=== PATIENT | female | born 1995 | race Caucasian/White ===

== ENCOUNTER 2021-02-13 01:25 | Inpatient (IN) | payer OTHER, SELFPAY ==
[~2021-02-13] VITALS: Ht 162.6 cm; Wt 70.3 kg
[2021-02-13] MEDS ORDERED: OXYTOCIN/0.9 % SODIUM CHLORIDE 1,000 ML IV SCH ×2 (02:15→07:15)
[2021-02-13] MEDS ORDERED: TERBUTALINE SULFATE 1 MG/ML VIAL SUBCUT ONE (02:15)
[2021-02-13] MEDS ORDERED: LR 1,000 ML IV ONE (02:15)
[2021-02-13] MEDS ORDERED: LR 1,000 ML IV SCH (02:15)
[2021-02-13 02:47] LABS: BASOPHILS # (AUTO) 0.1 K/uL (0.0-0.2); BASOPHILS % (AUTO) 0.4 % (0.0-2.0); EOSINOPHILS % (AUTO) 0.3 % (0.0-4.0); HEMOGLOBIN 13.2 g/dL (12.0-16.0); LYMPHOCYTES % (AUTO) 14.3 % (20.5-51.5); MEAN CORPUSCULAR HEMOGLOBIN 30 pg (27-31); MEAN CORPUSCULAR HGB CONC 35 % (32-36); MEAN CORPUSCULAR VOLUME 86 fL (79.0-98.0); MONOCYTES # (AUTO) 0.7 K/uL (0.0-1.0); MONOCYTES % (AUTO) 5.2 % (1.7-9.3); NEUTROPHILS # (AUTO) 11.1 K/uL (1.8-7.7); NEUTROPHILS % (AUTO) 79.8 % (40.0-70.0); PLATELET COUNT (AUTO) 232 K/uL (130-430); RED CELL DISTRIBUTION WIDTH 13.3 % (9.0-15.0); WHITE BLOOD COUNT (AUTO) 13.9 K/uL (4.8-10.8)
[2021-02-13] MEDS: NALBUPHINE HCL 10 MG/ML AMP IVP PRN ×2 (03:15→05:25)
[2021-02-13] MEDS ORDERED: LANOLIN 7 GM OINT. TP PRN (07:15)
[2021-02-13] MEDS ORDERED: METHYLERGONOVINE MALEATE 0.2 MG TABLET PO PRN (07:15)
[2021-02-13] MEDS ORDERED: ANUSOL 1 EA SUPP.RECT (PREPARATION H) RC PRN (07:15)
[2021-02-13] MEDS ORDERED: OXYTOCIN/0.9 % SODIUM CHLORIDE 1,000 ML IV ONE (07:15)
[2021-02-13] MEDS ORDERED: WITCH HAZEL LEAF 1 MED.PAD MED.PAD TP PRN (07:15)
[2021-02-13] MEDS ORDERED: HYDROCORTISONE 0.5% CREAM 28.4 GM CREAM.GM. TP PRN (07:15)
[2021-02-13] MEDS ORDERED: DERMOPLAST SPRAY TP PRN (07:15)
[2021-02-13] MEDS ORDERED: OXYCODONE/ACETAMINOPHEN 5-325 TABLET PO PRN ×2 (07:15)
[2021-02-13] MEDS: DOCUSATE SODIUM 100 MG CAPSULE PO SCH (08:42)
[2021-02-13] MEDS: IBUPROFEN 800 MG TABLET PO PRN ×2 (12:15→17:50)
[2021-02-13] MEDS ORDERED: TEMAZEPAM 15 MG CAPSULE PO PRN (21:00)
[2021-02-13] MEDS ORDERED: SENNOSIDES/DOCUSATE SODIUM 1 TAB TABLET(SENOKOT-S) PO SCH (21:00)
[2021-02-14] MEDS: IBUPROFEN 800 MG TABLET PO PRN ×2 (00:48→06:38)
[2021-02-14 08:24] LABS: HEMATOCRIT 32.8 % (36-48); HEMOGLOBIN 11.1 g/dL (12.0-16.0)
[2021-02-14] MEDS: DOCUSATE SODIUM 100 MG CAPSULE PO SCH (09:18)
[2021-02-14] MEDS ORDERED: MINERAL OIL 30 ML UDC PO ONE (11:04)
== END 2021-02-14 11:05 | disposition home or self-care (01) | DRG 806 ==
LOC: SPU 01:25 → OBSVTOIN 01:25
PROVIDERS: ADMIT Obstetrics & Gynecology; ATTEND Obstetrics & Gynecology
PROC: 10D07Z6 Extraction of Products of Conception, Vacuum, Via Natural or Artificial Opening (ICD-10-PCS; principal; 2021-02-13)
PROC: 0W8NXZZ Division of Female Perineum, External Approach (ICD-10-PCS; 2021-02-13)
DX: O24.420 Gestational diabetes mellitus in childbirth, diet controlled (principal); R71.0 Precipitous drop in hematocrit; Z37.0 Single live birth; Z3A.38 38 weeks gestation of pregnancy; Z20.822 Contact with and (suspected) exposure to COVID-19; O99.02 Anemia complicating childbirth
CPT/HCPCS: 36415; 81002; 82947; 85018; 85025; 86592; 86886; 86900; 86901; J2300; J2590